=== PATIENT | female | born 1970 | race Asian ===

== ENCOUNTER → 2017-10-31 | Outpatient (CLI) | END | disposition home or self-care (01) ==

== ENCOUNTER → 2018-12-17 | Outpatient (CLI) | payer BC ==
[~2018-12-17] MED LIST: ASC500 PO; ASPI-817 PO; ATEN-51 PO; ATOR40TA68 PO; CYAN50TA PO; DOCU250C24 PO; FOLI-49 PO; METF500T24 PO
== END | disposition home or self-care (01) ==
LOC: LAB 10:23
PROVIDERS: ATTEND Internal Medicine
DX: E55.9 Vitamin D deficiency, unspecified (principal); R73.03 Prediabetes; E78.5 Hyperlipidemia, unspecified
CPT/HCPCS: 71046; 80053; 80061; 82306; 83036; 84436; 84443; 85025